=== PATIENT | male | born 1955 | race Caucasian/White ===

== ENCOUNTER 2020-08-18 12:14 | Observation (INO) | payer BC ==
[~2020-08-18] VITALS: Ht 175.3 cm; Wt 111.0 kg
[2020-08-18 12:59] LABS: HEMATOCRIT 37.7 % (39.0-50.0); HEMOGLOBIN 12.2 g/dl (14.0-18.0); IMMATURE GRANULOCYTES 0.9 % (0.0-5.0); MEAN CELL VOLUME 82.5 fL CALC (80.0-100.0); MEAN CORPUSCULAR HGB 26.7 pG CALC (26.0-32.0); MEAN CORPUSCULAR HGB CONC 32.4 g/dL CAL (32.0-36.0); NEUT# 20.77 thou/uL (1.82-7.42); RED BLOOD COUNT 4.57 mill/uL (4.70-6.10); RED CELL DISTRI WIDTH 13.9 % (11.5-15.5)
[2020-08-18 13:25] LABS: ALBUMIN 3.9 g/dL (3.2-5.0); BILIRUBIN, TOTAL 1.3 mg/dL (0.0-1.4); CREATININE 1.8 mg/dL (0.7-1.3); POTASSIUM 3.2 mmol/l (3.5-5.1); TOTAL PROTEIN 6.9 g/dL (6.3-8.2)
[2020-08-18 14:48] LABS: URINE BILIRUBIN - DIPSTICK NEGATIVE (NEGATIVE); URINE BLOOD DIPSTICK MODERATE (NEGATIVE); URINE CLARITY CLOUDY; URINE GLUCOSE - DIPSTICK NEGATIVE (NEGATIVE); URINE KETONE NEGATIVE (NEGATIVE); URINE LEUK ESTERASE MODERATE (Negative); URINE NITRITE - DIPSTICK POSITIVE (Negative); URINE PROTEIN - DIPSTICK 100 mg/dL (NEG-TRACE); URINE SPECIFIC GRAVITY >=1.030
[2020-08-18 14:50] LABS: URINE COLOR DK. YELLOW
[2020-08-18] MEDS ORDERED: ASPIRIN325 MG PO (14:50)
[2020-08-18] MEDS ORDERED: HYDROCHLOROT25 MG PO (14:52)
[2020-08-18] MEDS ORDERED: NORVASC5 M1 PO (14:54)
[2020-08-18] MEDS ORDERED: LOSARTAN POTASS50 MG PO (14:56)
[2020-08-18] MEDS ORDERED: LABETALOL200 MG PO (14:56)
[2020-08-18 14:57] LABS: URINE BACTERIA FEW hpf; URINE WBC 20-50 WBC/hpf (0-5)
[2020-08-18] MEDS ORDERED: ATORVASTATIN CA40 MG PO (14:57)
[2020-08-18 16:58] VITALS: BP 132/58
[2020-08-18 21:26] VITALS: BP 112/58
[2020-08-19] VITALS (7 sets, daily range): BP systolic 104–156; BP diastolic 53–77
[2020-08-19 06:18] LABS: HEMATOCRIT 34.2 % (39.0-50.0); MEAN CELL VOLUME 82.6 fL CALC (80.0-100.0); MEAN CORPUSCULAR HGB 26.6 pG CALC (26.0-32.0); MEAN CORPUSCULAR HGB CONC 32.2 g/dL CAL (32.0-36.0); RED BLOOD COUNT 4.14 mill/uL (4.70-6.10)
[2020-08-19 06:44] LABS: BUN 27 mg/dL (8-23); BUN/CREATININE RATIO 20 (12-20 (CALC)); CARBON DIOXIDE 28 mmol/l (22-30); CREATININE 1.4 mg/dL (0.7-1.3); GFR 51 ML/MIN (>=60 (CALC)); GFR FOR AFR.AMER. > 60 ML/MIN (>=60 (CALC)); MAGNESIUM 2.3 mg/dL (1.6-2.3); POTASSIUM 3.3 mmol/l (3.5-5.1); SODIUM 136 mmol/l (137-146)
[2020-08-19 06:54] LABS: ANION GAP 10 (6-22 (CALC)); CHLORIDE 101 mmol/l (95-108)
[2020-08-20 00:04] VITALS: BP 136/67
[2020-08-20 04:00] VITALS: BP 133/61
[2020-08-20 06:21] LABS: HEMATOCRIT 32.6 % (39.0-50.0); HEMOGLOBIN 10.5 g/dl (14.0-18.0); MEAN CELL VOLUME 83.6 fL CALC (80.0-100.0); MEAN CORPUSCULAR HGB 26.9 pG CALC (26.0-32.0); MEAN CORPUSCULAR HGB CONC 32.2 g/dL CAL (32.0-36.0); RED BLOOD COUNT 3.9 mill/uL (4.70-6.10)
[2020-08-20 06:41] LABS: ANION GAP 12 (6-22 (CALC)); BUN 19 mg/dL (8-23); BUN/CREATININE RATIO 19 (12-20 (CALC)); CARBON DIOXIDE 26 mmol/l (22-30); CHLORIDE 104 mmol/l (95-108); GFR > 60 ML/MIN (>=60 (CALC)); GFR FOR AFR.AMER. > 60 ML/MIN (>=60 (CALC)); MAGNESIUM 2.1 mg/dL (1.6-2.3); POTASSIUM 3.5 mmol/l (3.5-5.1); SODIUM 139 mmol/l (137-146)
[2020-08-20] MEDS ORDERED: CIPROFLOXACN500 MG PO (08:38)
[2020-08-20 10:50] VITALS: BP 132/72
== END 2020-08-20 12:10 | disposition home or self-care (01) | DRG 872 ==
LOC: ED 12:14 → ED-I 14:54 → ED 15:08 → MS2 15:53
PROVIDERS: Nurse Practitioner; ADMIT Internal Medicine; ATTEND Internal Medicine
DX: A41.9 Sepsis, unspecified organism (principal); N12 Tubulo-interstitial nephritis, not specified as acute or chronic; N17.9 Acute kidney failure, unspecified; E87.2 Acidosis; R65.20 Severe sepsis without septic shock; I95.9 Hypotension, unspecified; I10 Essential (primary) hypertension; I25.10 Atherosclerotic heart disease of native coronary artery without angina pectoris; I25.2 Old myocardial infarction; E78.5 Hyperlipidemia, unspecified; Z95.1 Presence of aortocoronary bypass graft; Z20.822 Contact with and (suspected) exposure to COVID-19
CPT/HCPCS: G0378; J1650